=== PATIENT | male | born 2000 | race Caucasian/White ===

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

== ENCOUNTER 2022-04-10 08:05 | Emergency (ER) | payer MEDICAID, SELFPAY ==
[2022-04-10 08:08] VITALS: BP 135/81; PULSE 62; RESP 16; TEMP 36.5; O2SAT 98; BMI 26.6
--- NOTE | 2022-04-10 08:15 | W.ED.GENADLT ---
HPI - General Adult General: Chief complaint: General Medical Stated complaint: dental pain Time Seen by Provider: 04/10/22 08:11 Source: patient Mode of arrival: ambulatory History of Present Illness: 21-year-old male presents ER complaint of dental pain in the left mandibular area in the area of the second molar. He was seen 2 days ago at urgent care and started on clindamycin and encouraged to use aggressive dental hygiene and follow-up with a dentist soon as he is able. He has been taking the clindamycin he states he does not feel like it is getting better. He has not been able to see a dentist at this point. Onset (ago): day(s) Severity: moderate Quality: aching Pain Consistency: constant Relieving factors: none Exacerbating factors: none Associated symptoms: Reports decreased appetite; Deny chest pain, dyspnea, fevers/chills, headache(s), malaise or nausea Treatments prior to arrival: other (Antibiotics, [id number] analgesics) Review of Systems Const: Denies: fever(s), chills, body aches, change in appetite, fatigue or malaise ENMT: Denies: throat pain, ear or mastoid pain, nasal discharge or nasal congestion Card: Denies: chest pain, edema, dyspnea on exertion or orthopnea Resp: Denies: dyspnea, productive cough or non-productive cough GI: Denies: nausea Neuro: Denies: headache(s) [facility] ED PFSH: Medical History (Updated 04/10/22 @ 08:22 by Pietro Blackmon DO) Eczema Surgical History History of appendectomy History of eye surgery Social History Smoking and tobacco status: current every day smoker Alcohol intake: never Current gender identity: Male Physical Exam Const: COMMON NORMALS: no acute distress GENERAL APPEARANCE: cooperative and comfortable ORIENTATION/CONSCIOUSNESS: Yes awake, Yes oriented to person, Yes oriented to place and Yes oriented to time HENMT: COMMON NORMALS: normocephalic and atraumatic HEAD & SCALP: normocephalic and atraumatic OTHER: Inflammation of the gum on the left second molar of the mandible. No pointing no drainage no fluctuant palpable areas. No submandibular swelling or tenderness. Neck/C-Spine: COMMON NORMALS: full ROM, no lymphadenopathy, supple and no JVD Lymph: LYMPHATIC: no lymphadenopathy noted and no lymphedema noted Resp: COMMON NORMALS: normal respiratory effort, No retractions, No use of accessory muscles and clear to auscultation bilaterally AUSCULTATION: clear to auscultation bilaterally Cardio: COMMON NORMALS: no JVD, regular rate, regular rhythm and No murmurs present (Cardio) RATE: regular rate RHYTHM: regular rhythm Neuro: SENSORIUM/ORIENTATION: Yes oriented to person, Yes oriented to place and Yes oriented to time Skin: COMMON NORMALS: no rashes or lesions noted GENERAL SKIN EXAM: no rashes or lesions noted Course Vital Signs: Vital signs: Vital Signs Temperature 97.7 F 04/10/22 08:08 Pulse Rate 62 04/10/22 08:08 Respiratory Rate 16 04/10/22 08:08 Blood Pressure 135/81 04/10/22 08:08 Pulse Oximetry 98 04/10/22 08:08 Oxygen Delivery Me thod 04/10/22 08:08 [facility] - General Adult Medical Decision Making Continue clindamycin can use diclofenac and occasional tramadol follow-up with dentist as soon as able. Medical Records I reviewed the patient's medical records. Discharge Plan Discharge Patient Disposition: Home Clinical Impression: Abscess, dental Condition: Stable Prescriptions: New diclofenac sodium 75 mg tablet,delayed release (DR/EC) 75 mg PO Q12H PRN (Reason: pain) Qty: 20 0RF tramadol 50 mg tablet 50 mg PO Q12H Qty: 5 0RF No Action clindamycin HCl 150 mg capsule 450 mg PO TID 7 Days Qty: 63 0RF Discharge Orders: Discharge ED (Routine); Ordered 04/10/22 Ordered By: Pietro Blackmon Referrals: Brea Chau DO [Primary Care Provider] - Discharge Diet: Soft Mechanical Patient Instructions: Opioid Safety, Pain Management Activity Restrictions/Additional Instructions: Follow-up with dentist as soon as you are able. Continue regular dental hygiene. 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
--- NOTE | 2022-04-10 08:16 | PC.NURSE ---
pt reports dental abscess to left lower jaw x4 days. reports was seen in urgent care and was started on clindamycin 3 days ago. report was told if no improvement in 2 days to come back and be seen. pt denies fever or contact with sick contacts. reports swelling is spreading to front of jaw as well. pt speech clear, speaking in complete sentences without difficulty. self maintained, patent airway. no abnormal airway noises. lung sounds clear bilat. discolored gums noted to left lower jaw where there is a missing tooth towards the back. pt denies recent dental work. no significant swelling or erythema visualized.
[2022-04-10 08:31] VITALS: PULSE 60; RESP 16; O2SAT 100
== END 2022-04-10 08:34 | disposition home or self-care (01) ==
PROVIDERS: Emergency Provider Family Medicine; PCP Family Medicine
DX: K04.7 Periapical abscess without sinus (principal); F17.200 Nicotine dependence, unspecified, uncomplicated
CPT/HCPCS: 99283

== ENCOUNTER 2022-04-11 12:18 | Emergency (ER) | payer MEDICAID, SELFPAY ==
[2022-04-11 12:23] VITALS: BP 136/79; PULSE 78; RESP 16; TEMP 36.9; O2SAT 97; BMI 26.6
--- NOTE | 2022-04-11 12:42 | W.ED.DENTAL ---
HPI - Dental/Oral General: Chief complaint: Dental/Oral Stated complaint: dental pain Time Seen by Provider: 04/11/22 12:40 History of Present Illness: 21-year-old male patient comes in with a dental abscess. This will be patient's third visit for the same abscess. Patient reports uncontrolled pain and discomfort. Patient appears nontoxic. Patient appears in mild to moderate pain. Associated symptoms: Denies fever(s) Review of Systems Const: Denies: fever(s) ENMT: Reports: mouth pain Card: Denies: chest pain Resp: Denies: dyspnea PFSH ED PFSH: Medical History (Updated 04/11/22 @ 13:02 by JA Perez) Eczema Surgical History History of appendectomy History of eye surgery Social History Smoking and tobacco status: current every day smoker Alcohol intake: never Current gender identity: Male Physical Exam Const: COMMON NORMALS: alert HENMT: TEETH & GINGIVA: Yes abnormal tooth and associated gingiva (Abscess left lower jaw), Yes caries and Yes poor dentition Neck/C-Spine: COMMON NORMALS: full ROM Resp: COMMON NORMALS: normal respiratory effort Cardio: COMMON NORMALS: regular rate RATE: regular rate Extremity: COMMON NORMALS: normal to inspection Neuro: SENSORIUM/ORIENTATION: Yes alert Skin: COMMON NORMALS: turgor normal GENERAL SKIN EXAM: turgor normal Procedures Abscess I/D Site: oral Side (if applicable): left Sedation/analgesia: other (Dental block) Local Anesthetic: lidocaine 1% Amount of anesthesia used (mL): 3 Technique: incised with #11 blade Amount of fluid expressed (mL): 3 Packing used?: none Nerve Block Nerve Block 1: Local Anesthetic: lidocaine 1% Amount of anesthesia used (mL): 3 Side: left Nerve Blocks: other (Inferior aveolar dental block) Course Vital Signs: Vital signs: Vital Signs Temperature 98.5 F 04/11/22 12:23 Pulse Rate 78 04/11/22 12:23 Respiratory Rate 16 04/11/22 12:23 Blood Pressure 136/79 04/11/22 12:23 Pulse Oximetry 97 04/11/22 12:23 Oxygen Delivery Me thod 04/11/22 12:23 MDM - Dental/Oral Medical Decision Making Patient comes in with dental pain. Patient has an abscess to his left lower jaw. On exam patient appears nontoxic. Patient has a dental abscess noted at the first molar. Patient has significantly poor dentition, with multiple caries. Vital signs are normal. Differential diagnosis includes but not limited to dental abscess, retropharyngeal abscess, malingering. No sign of airway obstruction or abnormality was noted. Incision and drainage was done to the abscess with good results Patient will continue with clindamycin. Patient was written for 6 tablets of hydrocodone for his pain. Discharge Plan Discharge Patient Disposition: Home Clinical Impression: Abscess, dental Condition: Stable Prescriptions: New hydrocodone-acetaminophen 5-325 mg tablet 1 tab PO Q8H PRN (Reason: pain) Qty: 6 0RF Continued clindamycin HCl 150 mg capsule 450 mg PO TID 7 Days Qty: 63 0RF No Action diclofenac sodium 75 mg tablet,delayed release (DR/EC) 75 mg PO Q12H PRN (Reason: pain) Qty: 20 0RF tramadol 50 mg tablet 50 mg PO Q12H Qty: 5 0RF Discharge Orders: Discharge ED (Routine); Ordered 04/11/22 Ordered By: Parish Kerr Referrals: Brea Chau DO [Primary Care Provider] - Discharge Diet: Usual diet Discharge Activity: Increase activity as tolerated Patient Instructions: Toothache (ED), Opioid Safety Activity Restrictions/Additional Instructions: Range male frequently with warm salt water. Continue with antibiotic. Follow-up with dentist as soon as possible. Return to emergency room for fever greater than 100.4, or new concerns. 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
[2022-04-11] MEDS: HYDROcodone-acetaminophen 7.5-325 mg Tablet 1 TAB PO (12:58)
[2022-04-11] MEDS: lidocaine 1% INJ 20 mL MDV (mL) INJECTION (13:16)
== END 2022-04-11 13:15 | disposition home or self-care (01) ==
PROVIDERS: Emergency Provider Nurse Practitioner Family; PCP Family Medicine
DX: K04.7 Periapical abscess without sinus (principal); F17.200 Nicotine dependence, unspecified, uncomplicated
CPT/HCPCS: 41800; 99283

== ENCOUNTER 2022-06-12 22:14 | Emergency (ER) | payer MEDICAID, SELFPAY ==
[2022-06-12 22:25] VITALS: BP 144/94; PULSE 69; RESP 16; TEMP 36.6; O2SAT 99; BMI 23.5
--- NOTE | 2022-06-12 22:32 | USR_ITS ---
PROCEDURE INFORMATION: Exam: US Scrotum and US Duplex Artery and Vein, Scrotum, Complete Exam date and time: 06/12/2022 10:53 PM Age: 21 years old Clinical indication: Scrotum pain; Additional info: Left testicle pain TECHNIQUE: Imaging protocol: Real-time ultrasound of the scrotum. Real-time duplex ultrasound scan of the arterial and venous flow of the scrotum with B-mode, color Doppler flow and spectral waveform analysis. Complete exam. Duplex exam was performed to evaluate for torsion and other vascular conditions. COMPARISON: No relevant prior studies available. FINDINGS: Right: The right testicle measures 45 x 27 x 31 mm, estimated volume 18.9 cc. No visible intratesticular mass. Duplex Doppler evaluation, with color flow and spectral waveform analysis, demonstrates intratesticular arterial and venous blood flow. The right epididymis is normal in size and appearance. There is no significant right scrotal fluid. Left: The left testicle measures 44 x 22 x 33 mm, estimated volume 16.9 cc. No visible intratesticular mass. Duplex Doppler evaluation, with color flow and spectral waveform analysis, demonstrates intratesticular arterial and venous blood flow. The left epididymis is normal in size and appearance. There is no significant left scrotal fluid. US/US scrotum [id number] IMPRESSION: 1. No evidence for torsion by Doppler ultrasound. 2. No findings to suggest epididymitis. 3. Other details discussed above.
--- NOTE | 2022-06-12 22:32 | ED_ITS ---
HPI - Male Genitourinary General: Chief complaint: Urogenital-Male Stated complaint: Groin, Discomfort Time Seen by Provider: 06/12/22 22:23 Source: patient Mode of arrival: ambulatory Limitations: no limitations History of Present Illness: 21-year-old male states that he has been having left testicle pain over the last day states that its mild nature rates it a 2 out of 10 he denies any dysuria denies any penile discharge he states is worse with palpation improved with rest. Denies any vomiting denies any abdominal or flank pain. Associated symptoms: Deny nausea or vomiting Review of Systems Const: Denies: fever(s), chills, body aches or change in appetite Eyes: Denies: blurry vision or eye discomfort ENMT: Denies: throat pain or dental pain Card: Denies: chest pain Resp: Denies: dyspnea GI: Denies: abdominal pain, nausea, vomiting or diarrhea : Reports: genital pain Musc: Denies: neck pain or back pain Skin/Breast: Denies: rash Neuro: Denies: headache(s) Psych: Denies: depression Jj/Lymph: Denies: easy bruising All/Imm: Denies: urticaria PFSH ED PFSH: Medical History (Updated 06/12/22 @ 23:37 by Brian Cody MD) Eczema Surgical History History of appendectomy History of eye surgery Social History Smoking and tobacco status: current every day smoker Alcohol intake: never Current gender identity: Male Physical Exam Const: COMMON NORMALS: no acute distress, patient oriented x3 and healthy appearing HENMT: COMMON NORMALS: normocephalic and atraumatic HEAD & SCALP: normocephalic and atraumatic Eye: COMMON NORMALS: Equal, round and reactive pupils present and EOMs intact bilaterally PUPIL: Yes Equal, round and reactive pupils present Neck/C-Spine: COMMON NORMALS: full ROM and supple Chest: COMMONS NORMALS: normal inspection of the chest and normal palpation of entire chest wall Resp: COMMON NORMALS: normal respiratory effort, No retractions, No use of accessory muscles and clear to auscultation bilaterally AUSCULTATION: clear to auscultation bilaterally Cardio: COMMON NORMALS: regular rate, regular rhythm and No murmurs present (Cardio) RATE: regular rate RHYTHM: regular rhythm GI: COMMON NORMALS: Normal to inspection, nondistended, normoactive bowel sounds present, Soft to palpation, non-tender and no masses PALPATION: Yes Soft to palpation : OTHER: Slight tenderness to left testicle no obvious deformity Extremity: COMMON NORMALS: normal to inspection and full ROM Neuro: COMMON NORMALS: patient oriented x3, moves all extremities and no focal motor deficits Psych: COMMON NORMALS: mental status grossly normal, Normal thought process present and cooperative THOUGHT PROCESS: Normal thought process present Skin: COMMON NORMALS: no rashes or lesions noted and no wounds GENERAL SKIN EXAM: no rashes or lesions noted Course Vital Signs: Vital signs: Vital Signs Temperature 97.9 F 06/12/22 22:25 Pulse Rate 69 06/12/22 22:25 Respiratory Rate 16 06/12/22 22:25 Blood Pressure 144/94 06/12/22 22:25 Pulse Oximetry 99 06/12/22 22:25 Oxygen Delivery Me thod 06/12/22 22:25 MDM - Male Medical Decision Making Patient presents here with testicle pain his ultrasound here is negative he is stable for discharge he is to follow-up PCP and return if worsening. He understands agrees to plan. Lab Data Radiology Impressions Scrotum Ultrasound 06/12/22 22:32 IMPRESSION: 1. No evidence for torsion by Doppler ultrasound. 2. No findings to suggest epididymitis. 3. Other details discussed above. Discharge Plan Discharge Patient Disposition: Home Clinical Impression: Left testicular pain Condition: Stable Prescriptions: No Action diclofenac sodium 75 mg tablet,delayed release (DR/EC) 75 mg PO Q12H PRN (Reason: pain) Qty: 20 0RF tramadol 50 mg tablet 50 mg PO Q12H Qty: 5 0RF clindamycin HCl 150 mg capsule 450 mg PO TID 7 Days Qty: 63 0RF hydrocodone-acetaminophen 5-325 mg tablet 1 tab PO Q8H PRN (Reason: pain) Qty: 6 0RF Discharge Orders: Discharge ED (Routine); Ordered 06/12/22 Ordered By: Brian Cody Referrals: Brea Chau DO [Primary Care Provider] - Discharge Diet: Advance as tolerated Discharge Activity: Resume usual activity Patient Instructions: Testicle Pain (ED) Coding Level of Care Code ED Aviation Safety Technician for Chg Fwd Exam Comprehensive
[2022-06-13] VITALS: BP 138/77; PULSE 81; RESP 18; O2SAT 99
== END 2022-06-12 23:58 | disposition home or self-care (01) ==
PROVIDERS: Emergency Provider Emergency Medicine; PCP Family Medicine
DX: N50.812 Left testicular pain (principal)
CPT/HCPCS: 76870; 99283

== ENCOUNTER 2022-07-25 18:04 | Emergency (ER) | payer MEDICAID, SELFPAY ==
[2022-07-25 18:08] VITALS: PULSE 78; RESP 16; TEMP 37.3; O2SAT 99
--- NOTE | 2022-07-25 18:41 | XRR_ITS ---
PROCEDURE INFORMATION: Exam: XR Right Knee Exam date and time: 07/25/2022 7:17 PM Age: 21 years old Clinical indication: Injury or trauma; Other: Sports related injury; Blunt trauma; Knee; Right; Additional info: Fall, knee pain, HX mcl injury TECHNIQUE: Imaging protocol: Radiologic exam of the Right knee. Views: 3 views. COMPARISON: No relevant prior studies available. FINDINGS: Bones/joints: No fracture or dislocation. No degenerative changes. Soft tissues: Probable small joint effusion. . XR/XR knee RT 3V* [id number] IMPRESSION: 1. No acute bony findings 2. Probable small joint effusion
[2022-07-25] MEDS: oxyCODONE-APAP 5-325 mg Tablet 1 TAB PO (22:05)
--- NOTE | 2022-07-27 12:19 | W.ED.EXTPRO ---
HPI - Extremity Problem General: Chief complaint: Extremity Injury, Lower Stated complaint: right knee injury Time Seen by Provider: 07/25/22 21:14 History of Present Illness: 21 year old male complaints of a knee injury, in which he fell against a stair, striking in front of his knee. He complains mainly of anterior knee pain, but some medial knee pain as well. He has some swelling. He states these are making it hard to walk. He has a hinged brace at home, that has not used it much. MD Complaint: joint swelling and joint pain Onset (ago): day(s) Pain Consistency: constant Location: right and knee Quality: aching Radiation: none Relieving factors: immobilization Exacerbating factors: range of motion, weight bearing and walking Associated symptoms: Deny arthralgias, chest pain, fever(s), rash or short of breath Context: other Review of Systems Const: Denies: fever(s) Eyes: Denies: change in vision Card: Denies: chest pain Resp: Denies: dyspnea, productive cough, non-productive cough or wheezing GI: Denies: abdominal pain, nausea, vomiting or diarrhea Skin/Breast: Denies: rash Neuro: Denies: headache(s), weakness in extremities, dizziness or confusion [facility] ED PFSH: Medical History (Updated 07/25/22 @ 21:51 by Lorenzo Singh DO) Eczema Surgical History History of appendectomy History of eye surgery Social History Smoking and tobacco status: current every day smoker Alcohol intake: never Current gender identity: Male Physical Exam Const: COMMON NORMALS: no acute distress GENERAL APPEARANCE: cooperative; not ill appearing and not frail appearing HENMT: COMMON NORMALS: normocephalic, atraumatic and Normal external nose present HEAD & SCALP: normocephalic and atraumatic FACE & SINUS: normal facial exam and face symmetric NOSE: Normal external nose present Eye: COMMON NORMALS: Equal, round and reactive pupils present and EOMs intact bilaterally PUPIL: Yes Equal, round and reactive pupils present Neck/C-Spine: GENERAL: Yes trachea midline Chest: CHEST: Yes Symmetrical chest wall rise Resp: COMMON NORMALS: normal respiratory effort, No retractions, No use of accessory muscles and clear to auscultation bilaterally AUSCULTATION: clear to auscultation bilaterally Cardio: COMMON NORMALS: regular rate and regular rhythm RATE: regular rate RHYTHM: regular rhythm GI: COMMON NORMALS: Normal to inspection, nondistended, normoactive bowel sounds present Extremity: COMMON NORMALS: no pedal edema NARRATIVE EXTREMITY EXAM: Examination of the right knee reveals an effusion. There is anterior and medial joint line tenderness. There is no deformity. Ligamentous testing is guarded. Neuro: DORIS COMA SCALE: document GCS findings [place] coma scale eye opening: Spontaneous Doris coma scale verbal response: Orientated Doris coma scale motor response: Obey commands [place] coma scale total score: 15 SENSORY EXAM: Yes extremities (intact) Psych: COMMON NORMALS: speech normal SPEECH: Yes normal speech Skin: COMMON NORMALS: no rashes or lesions noted GENERAL SKIN EXAM: no rashes or lesions noted Course Vital Signs: Vital signs: Vital Signs Temperature 99.1 F 07/25/22 18:08 Pulse Rate 78 07/25/22 18:08 Respiratory Rate 16 07/25/22 18:08 Pulse Oximetry 99 07/25/22 18:08 MDM - Extremity (Nontraumatic) Medical Decision Making X-ray is negative for fracture, but does show a knee effusion. We will make him a follow up appointment with orthopedics for continued evaluation. He?ll be placed on a Medrol jim for the swelling in the meantime. Knee immobilizer for no more than 5 days then back to his hinged brace. Return for new symptoms. Lab Data Radiology Impressions Knee X-Ray 07/25/22 18:41 IMPRESSION: 1. No acute bony findings 2. Probable small joint effusion Discharge Plan Discharge Patient Disposition: Home Clinical Impression: Effusion of knee joint right, Contusion of knee, right Condition: Stable Prescriptions: New Medrol (Jim) 4 mg tablets,dose pack See Rx Instructions .ROUTE .COMPLEX Qty: 21 0RF Rx Instructions: orally per package directions No Action diclofenac sodium 75 mg tablet,delayed release (DR/EC) 75 mg PO Q12H PRN (Reason: pain) Qty: 20 0RF tramadol 50 mg tablet 50 mg PO Q12H Qty: 5 0RF clindamycin HCl 150 mg capsule 450 mg PO TID 7 Days Qty: 63 0RF hydrocodone-acetaminophen 5-325 mg tablet 1 tab PO Q8H PRN (Reason: pain) Qty: 6 0RF Discharge Orders: Discharge ED (Routine); Ordered 07/25/22 Ordered By: Lorenzo Singh Referrals: Brea Chau DO [Primary Care Provider] - Glynn Alvarez DO [Physician] - 4-7 days Patient Instructions: Swollen Knee Joint (ED) Activity Restrictions/Additional Instructions: Case management will make an appointment for you to follow-up with orthopedics. You should get a call from them on Tuesday or Tuesday. Return for fever, worsening pain or swelling despite treatment. Wear your knee immobilizer for the next 5 days only, then moved back to your hinged knee brace. Medication as directed. Coding Level of Care Code ED Lingo Cleaner for Coty Reilly
== END 2022-07-25 22:05 | disposition home or self-care (01) ==
PROVIDERS: Emergency Provider Emergency Medicine; PCP Family Medicine
DX: M25.461 Effusion, right knee (principal); S80.01XA Contusion of right knee, initial encounter; F17.210 Nicotine dependence, cigarettes, uncomplicated; W19.XXXA Unspecified fall, initial encounter
CPT/HCPCS: 29530; 73562; 99283; E0114

== ENCOUNTER 2022-08-18 05:18 | Emergency (ER) | payer MEDICAID, SELFPAY ==
[2022-08-18 05:22] VITALS: BP 141/90; PULSE 77; RESP 16; TEMP 36.4; O2SAT 100; BMI 23.5
--- NOTE | 2022-08-18 05:26 | ED_ITS ---
HPI - Dental/Oral General: Chief complaint: Dental/Oral Stated complaint: tooth abcess Time Seen by Provider: 08/18/22 05:19 Source: patient Mode of arrival: ambulatory Limitations: no limitations History of Present Illness: 21-year-old male states has been having left lower dental pain over the last 8 to 10 hours states he has had dental infections in the past he does have poor dentition he states he has pain he rates a 3 out of 10 denies any trismus denies any fever denies any worsening proving factors. Associated symptoms: Denies fever(s) Review of Systems Const: Denies: fever(s), chills, body aches or change in appetite Eyes: Denies: blurry vision or eye discomfort ENMT: Reports: mouth pain Card: Denies: chest pain Resp: Denies: dyspnea GI: Denies: abdominal pain, nausea, vomiting or diarrhea : Denies: dysuria Musc: Denies: neck pain or back pain Skin/Breast: Denies: rash Neuro: Denies: headache(s) Psych: Denies: depression Jj/Lymph: Denies: easy bruising All/Imm: Denies: urticaria PFS ED PFSH: Medical History (Updated 08/18/22 @ 05:28 by Brian Cody MD) Eczema Surgical History History of appendectomy History of eye surgery Social History Smoking and tobacco status: current every day smoker Alcohol intake: never Current gender identity: Male Physical Exam Const: COMMON NORMALS: no acute distress and patient oriented x3 HENMT: COMMON NORMALS: normocephalic and atraumatic HEAD & SCALP: normocephalic and atraumatic OTHER: Poor dentition some tenderness and erythema to left lower molar no abscess no trismus Eye: COMMON NORMALS: conjunctivae normal CONJUNCTIVA: Yes conjunctivae normal Neck/C-Spine: COMMON NORMALS: full ROM Chest: COMMONS NORMALS: normal inspection of the chest Resp: COMMON NORMALS: normal respiratory effort Cardio: COMMON NORMALS: regular rate RATE: regular rate GI: INSPECTION: Yes normal to inspection Extremity: COMMON NORMALS: normal to inspection Neuro: COMMON NORMALS: patient oriented x3 Psych: COMMON NORMALS: mental status grossly normal Skin: COMMON NORMALS: no rashes or lesions noted GENERAL SKIN EXAM: no rashes or lesions noted Course Vital Signs: Vital signs: Vital Signs Temperature 97.6 F 08/18/22 05:22 Pulse Rate 77 08/18/22 05:22 Respiratory Rate 16 08/18/22 05:22 Blood Pressure 141/90 08/18/22 05:22 Pulse Oximetry 100 08/18/22 05:22 Oxygen Delivery Me thod 08/18/22 05:22 MDM - Dental/Oral Medical Decision Making Patient presents with dental pain as of erythema no abscess at this time no trismus we will start him on antibiotics he is to follow-up with a dentist. Discharge Plan Discharge Patient Disposition: Home Clinical Impression: Pain, dental Condition: Stable Prescriptions: New cephalexin 500 mg capsule 500 mg PO TID 7 Days Qty: 21 0RF naproxen [Naprosyn] 500 mg tablet 500 mg PO BID PRN (Reason: pain) Qty: 20 0RF No Action diclofenac sodium 75 mg tablet,delayed release (DR/EC) 75 mg PO Q12H PRN (Reason: pain) Qty: 20 0RF tramadol 50 mg tablet 50 mg PO Q12H Qty: 5 0RF clindamycin HCl 150 mg capsule 450 mg PO TID 7 Days Qty: 63 0RF hydrocodone-acetaminophen 5-325 mg tablet 1 tab PO Q8H PRN (Reason: pain) Qty: 6 0RF Medrol (Jim) 4 mg tablets,dose pack See Rx Instructions .ROUTE .COMPLEX Qty: 21 0RF Rx Instructions: orally per package directions Discharge Orders: Discharge ED (Routine); Ordered 08/18/22 Ordered By: Brian Cody Referrals: Brea Chau DO [Primary Care Provider] - Discharge Diet: Advance as tolerated Discharge Activity: Resume usual activity Patient Instructions: Toothache (ED) Coding Level of Care Code ED Skiff Operator for Coty Reilly
[2022-08-18] MEDS: HYDROcodone-acetaminophen 5-325 mg Tablet 1 TAB PO (05:31)
[2022-08-18] MEDS: cephALEXin 500 mg Capsule PO (05:31)
[2022-08-18 05:37] VITALS: RESP 16
== END 2022-08-18 05:38 | disposition home or self-care (01) ==
PROVIDERS: Emergency Provider Emergency Medicine; PCP Family Medicine
DX: K08.89 Other specified disorders of teeth and supporting structures (principal); F17.210 Nicotine dependence, cigarettes, uncomplicated
CPT/HCPCS: 99283

== ENCOUNTER → 2022-08-20 10:36 | Outpatient (BNVA) | payer MEDICAID, SELFPAY | PROVIDERS: PCP Family Medicine; Visit Provider Student in an Organized Health Care Education/Training Program | DX: S83.241A Other tear of medial meniscus, current injury, right knee, initial encounter (principal); W10.8XXA Fall (on) (from) other stairs and steps, initial encounter | CPT/HCPCS: 73560; 73565 ==

== ENCOUNTER 2022-09-03 23:16 | Emergency (ER) | payer MEDICAID, SELFPAY ==
[2022-09-03 23:21] VITALS: BP 149/90; PULSE 82; RESP 18; TEMP 36.8; O2SAT 98; BMI 23.5
--- NOTE | 2022-09-03 23:26 | ECG_ITS ---
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 Measurements Intervals [place] Rate: 72 P: 72 DC: 136 QRS: 74 QRSD: 94 T: 62 QT: 346 QTc: 381 Interpretive Statements SINUS RHYTHM POSSIBLE RIGHT VENTRICULAR CONDUCTION DELAY [RSR (QR) IN V1/V2] No previous ECG available for comparison Electronically Signed On 09-04-2022 19:30:41 HEDGE FUND PRINCIPAL by Prieto Monk M.D. [email or web address]
--- NOTE | 2022-09-03 23:33 | W.ED.CHESTPA ---
HPI - Chest Pain General: Chief Complaint: Chest Pain Stated Complaint: Chest Pain Time Seen by Provider: 09/03/22 23:32 History of Present Illness: 22-year-old male patient comes in today with complaints of chest wall pain. Patient reports pain radiates across his chest mainly with movement. Patient appears nontoxic. Patient appears in no acute distress. Patient has a history of inherited dental disease, alcohol use disorder, tobacco chewing, major depression, anxiety disorder. Patient recently been on antibiotics for a dental infection. Associated symptoms: Deny dyspnea, fever(s), nausea or vomiting Review of Systems Const: Denies: fever(s) Card: Reports: chest pain Resp: Denies: dyspnea GI: Denies: nausea or vomiting Musc: Denies: neck pain or back pain Neuro: Denies: headache(s) PFS ED PFSH: Medical History (Updated 09/04/22 @ 01:19 by JA Perez) Eczema Surgical History History of appendectomy History of eye surgery Social History Smoking and tobacco status: current every day smoker Alcohol intake: never Current gender identity: Male Physical Exam Const: COMMON NORMALS: alert HENMT: COMMON NORMALS: normocephalic and Normal external nose present HEAD & SCALP: normocephalic NOSE: Normal external nose present Neck/C-Spine: COMMON NORMALS: full ROM Lymph: LYMPHATIC: no lymphadenopathy noted Chest: COMMONS NORMALS: normal palpation of entire chest wall Resp: COMMON NORMALS: normal respiratory effort and clear to auscultation bilaterally AUSCULTATION: clear to auscultation bilaterally Cardio: COMMON NORMALS: regular rate and regular rhythm RATE: regular rate RHYTHM: regular rhythm GI: COMMON NORMALS: Soft to palpation and non-tender PALPATION: Yes Soft to palpation : COMMON NORMALS: Yes no CVA tenderness BLADDER/KIDNEY EXAM: Yes no CVA tenderness Back/Pelvis: COMMON NORMALS: no CVA tenderness and thoracic and lumbar spine normal to inspection Extremity: COMMON NORMALS: full ROM Neuro: SENSORIUM/ORIENTATION: Yes alert Skin: COMMON NORMALS: turgor normal GENERAL SKIN EXAM: turgor normal Course Vital Signs: Vital signs: Vital Signs Temperature 98.2 F 09/03/22 23:21 Pulse Rate 79 09/03/22 23:40 Respiratory Rate 16 09/03/22 23:40 Blood Pressure 156/90 09/03/22 23:40 Pulse Oximetry 99 09/03/22 23:40 MDM - Chest Pain Medical Decision Making 22-year-old male patient comes in today for complaints of chest pain with movement. On exam patient appears nontoxic. Abdomen soft nontender. Skin is warm and dry. No chest wall reproducible pain is noted. Differential diagnosis includes but not limited to his GERD, ACS, PE, malingering, depression. Laboratory values were unremarkable. EKG was unremarkable. No signs of ACS was noted. D-dimer was negative. Patient was given a GI cocktail with good results. Suspect patient might have some GERD/esophagitis/gastritis. Will start on Protonix daily for the next 14 days. Patient reported understanding of care plan need for follow-up or return to the ER. Lab Data 09/03/22 23:43 09/03/22 23:43 Laboratory Results WBC 8.1 10^3/uL (4.5-13.0) 09/03/22 23:43 RBC 5.20 10^6/uL (4.1-5.3) 09/03/22 23:43 Hgb 14.4 g/dL (11.7-16.6) 09/03/22 23:43 Hct 44.2 % (42.0-52.0) 09/03/22 23:43 MCV 85.0 fl (80-94) 09/03/22 23:43 MCH 27.7 pg (28.0-34.0) L 09/03/22 23:43 MCHC 32.6 g/dL (30.0-36.0) 09/03/22 23:43 RDW 11.9 % (12.1-15.1) L 09/03/22 23:43 Plt Count 273 10^3/cmm (130-400) 09/03/22 23:43 MPV 10.2 fL (7.4-10.4) 09/03/22 23:43 Neut % (Auto) 52.5 % 09/03/22 23:43 Lymph % (Auto) 38.1 % 09/03/22 23:43 Grand % (Auto) 6.2 % 09/03/22 23:43 Eos % (Auto) 2.5 % 09/03/22 23:43 Baso % (Auto) 0.6 % 09/03/22 23:43 Neut # (Auto) 4.23 10^3/uL (1.8-8.0) 09/03/22 23:43 Lymph # (Auto) 3.1 10^3/uL (1.5-6.5) 09/03/22 23:43 Grand # (Auto) 0.5 10^3/uL (0.2-0.9) 09/03/22 23:43 Eos # (Auto) 0.2 10^3/uL (0.0-0.8) 09/03/22 23:43 Baso # (Auto) 0.1 10^3/uL (0.0-0.1) 09/03/22 23:43 Nucleated RBC % (auto) 0 % 09/03/22 23:43 Nucleated RBCs # 0.0 /100WBC 09/03/22 23:43 D-Dimer <= 0.27 ug/mIFEU (0-0.59) 09/03/22 23:43 Sodium 138 mmol/L (136-145) 09/03/22 23:43 Potassium 3.7 mmol/L (3.5-5.1) 09/03/22 23:43 Chloride 101 mmol/L (98-107) 09/03/22 23:43 Carbon Dioxide 26 mmol/L (22-29) 09/03/22 23:43 Anion Gap 14.7 (5-19) 09/03/22 23:43 BUN 13 mg/dL (6-20) 09/03/22 23:43 Creatinine 0.6 mg/dL (0.7-1.2) L 09/03/22 23:43 GFR Calculation 171.8 mL/min (90-130) H 09/03/22 23:43 Glucose 114 mg/dL (65-115) 09/03/22 23:43 Calculated Osmolality 287 mOsm/kg (285-295) 09/03/22 23:43 Calcium 9.8 mg/dL (8.5-10.5) 09/03/22 23:43 Total Bilirubin 0.4 mg/dL (0.15-1.2) 09/03/22 23:43 AST 13 U/L (0-40) 09/03/22 23:43 ALT 7 U/L (0-41) 09/03/22 23:43 Alkaline Phosphatase 67 U/L (40-130) 09/03/22 23:43 Troponin T Baseline 6 ng/L (0-15) 09/03/22 23:43 NT-Pro-B Natriuret Pep 36 pg/mL (0-125) 09/03/22 23:43 Total Protein 7.3 g/dL (6.6-8.7) 09/03/22 23:43 Albumin 4.9 g/dL (3.5-5.2) 09/03/22 23:43 Globulin 2.4 g/dL (1.3-4.6) 09/03/22 23:43 Lipase 32 U/L (13-60) 09/03/22 23:43 Discharge Plan Discharge Patient Disposition: Home Clinical Impression: GERD (gastroesophageal reflux disease) Qualifiers: Esophagitis presence: esophagitis presence not specified Qualified Code(s): K21.9 - Gastro-esophageal reflux disease without esophagitis Condition: Stable Prescriptions: New pantoprazole 20 mg tablet,delayed release (DR/EC) 20 mg PO DAILY Qty: 14 0RF Rx Instructions: take 30 minutes prior to first meal No Action Naprosyn 500 mg tablet 500 mg PO BID PRN (Reason: pain) Qty: 20 0RF diclofenac sodium 75 mg tablet,delayed release (DR/EC) 75 mg PO Q12H PRN (Reason: pain) Qty: 20 0RF hydrocodone-acetaminophen 5-325 mg tablet 1 tab PO Q8H PRN (Reason: pain) Qty: 6 0RF Discharge Orders: Discharge ED (Routine); Ordered 09/04/22 Ordered By: Parish Kerr Referrals: Brea Chau DO [Primary Care Provider] - Discharge Diet: Usual diet Discharge Activity: Increase activity as tolerated Patient Instructions: GERD (Gastroesophageal Reflux Disease) (ED) Activity Restrictions/Additional Instructions: Take pantoprazole 20 mg 1 tablet 30 minutes prior to the first meal of each day. Use that for the next 2 weeks. Follow-up with primary care in 2 weeks for recheck. Return to emergency department for new concerns. Coding Level of Care Code ED Cotton Cleaner for Coty Reilly
[2022-09-03 23:40] VITALS: BP 156/90; PULSE 79; RESP 16; O2SAT 99
[2022-09-04 00:05] LABS: Basophils # 0.1 10^3/uL (0.0-0.1); Basophils % 0.6 %; Eosinophils # 0.2 10^3/uL (0.0-0.8); Eosinophils % 2.5 %; Hematocrit 44.2 % (42.0-52.0); Hemoglobin 14.4 g/dL (11.7-16.6); Lymphocytes # 3.1 10^3/uL (1.5-6.5); Lymphocytes % 38.1 %; Mean Corpuscular HGB Conc 32.6 g/dL (30.0-36.0); Mean Corpuscular Hemoglobin 27.7 pg (28.0-34.0); Mean Platelet Volume 10.2 fL (7.4-10.4); Monocytes # 0.5 10^3/uL (0.2-0.9); Monocytes % 6.2 %; Neutrophils # 4.23 10^3/uL (1.8-8.0); Neutrophils % 52.5 %; Nucleated Red Blood Cells % 0 %; Platelet Count 273 10^3/cmm (130-400); Red Cell Distribution Width 11.9 % (12.1-15.1); White Blood Count 8.1 10^3/uL (4.5-13.0)
[2022-09-04 00:09] LABS: D Dimer <= 0.27 ug/mIFEU (0-0.59)
[2022-09-04 00:18] LABS: Troponin(5th) Baseline 6 ng/L (0-15)
[2022-09-04 00:25] LABS: Alanine Aminotransferase 7 U/L (0-41); Albumin Level 4.9 g/dL (3.5-5.2); Alkaline Phosphatase 67 U/L (40-130); Anion Gap 14.7 (5-19); Aspartate Amino Transferase 13 U/L (0-40); Blood Urea Nitrogen 13 mg/dL (6-20); Calcium 9.8 mg/dL (8.5-10.5); Carbon Dioxide 26 mmol/L (22-29); Chloride 101 mmol/L (98-107); Globulin 2.4 g/dL (1.3-4.6); Glomerular Filtration Rate 171.8 mL/min (90-130); Glucose 114 mg/dL (65-115); Lipase 32 U/L (13-60); NT Pro B Type Natriuretic Pept 36 pg/mL (0-125); Osmolality Calculated 287 mOsm/kg (285-295); Potassium 3.7 mmol/L (3.5-5.1); Sodium 138 mmol/L (136-145); Total Bilirubin 0.4 mg/dL (0.15-1.2); Total Protein 7.3 g/dL (6.6-8.7)
[2022-09-04] MEDS: lidocaine 2% viscous 15 ML, aluminum-mag hydrox-simethicon 30 ML, sucralfate oral liq 1 GM PO (01:13)
[2022-09-04 01:31] VITALS: BP 156/90; PULSE 86; RESP 18; O2SAT 98
== END 2022-09-04 01:33 | disposition home or self-care (01) ==
PROVIDERS: Emergency Provider Nurse Practitioner Family; PCP Family Medicine
DX: K21.9 Gastro-esophageal reflux disease without esophagitis (principal); F17.210 Nicotine dependence, cigarettes, uncomplicated
CPT/HCPCS: 80053; 83690; 83880; 84484; 85025; 85378; 93005; 99284

== ENCOUNTER 2022-12-03 11:18 | Emergency (ER) | payer MEDICAID, SELFPAY ==
[2022-12-03 11:30] VITALS: BP 106/67; PULSE 63; RESP 14; TEMP 36.4; O2SAT 99; BMI 22.8
--- NOTE | 2022-12-03 11:37 | XR_ITS ---
WS: [id number] Left ankle, 3 views, 12/03/2022 Clinical Data: pain, swelling, sports injury Comparison: Left ankle, 05/08/2021. Findings: No fractures or dislocations are seen. The ankle mortise is normal. The talus and calcaneus are unrem arkable. No soft tissue swelling over the medial or lateral malleolus is seen. XR/XR ankle LT min 3V* [id number] Impression: Negative left ankle.
--- NOTE | 2022-12-03 13:18 | ED_ITS ---
HPI - Extremity Problem General: Chief complaint: Extremity Injury, Lower Stated complaint: Left Leg injury Time Seen by Provider: 12/03/22 13:15 Source: patient Mode of arrival: ambulatory Limitations: no limitations History of Present Illness: Patient is a 22-year-old male who presents to ED today for evaluation of left ankle pain. He states the pain began after running while playing softball. He denies any known injury or trauma to the ankle. He still is able to bear weight. He has not noticed any significant swelling. No redness/warmth. Has no other injuries or complaints at this time. MD Complaint: joint pain Onset (ago): day(s) (Yesterday) Pain Consistency: constant Location: left and lower extremity Radiation: none Relieving factors: immobilization Exacerbating factors: range of motion, weight bearing and walking Associated symptoms: Reports no associated symptoms; Deny chest pain, fever(s) or rash Review of Systems Const: Denies: fever(s), chills, body aches, fatigue or malaise Card: Denies: chest pain Resp: Denies: dyspnea Musc: Reports: joint pain (Left ankle); Denies: neck pain, back pain, extremity pain, extremity swelling, joint swelling, joint redness, joint warmth, joint stiffness or limited range of motion Skin/Breast: Denies: rash Neuro: Denies: numbness in extremities, weakness in extremities, sensory maldonado ges or difficulty walking [facility] ED PFSH: Medical History Eczema Surgical History History of appendectomy History of eye surgery Social History Smoking and tobacco status: current every day smoker Alcohol intake: never Substance/Drug Use: never Current gender identity: Male Physical Exam Const: COMMON NORMALS: no acute distress, average body habitus, patient oriented x3, no limitations, healthy appearing, alert and well nourished Extremity: COMMON NORMALS: normal to inspection, full ROM, capillary refill normal, no joint enlargement, no clubbing, cyanosis or edema, no calf tenderness and no pedal edema GENERAL: Yes normal exam except as noted LEFT LOWER EXTREMITY: Yes ankle joint (full ROM) Left ankle: Yes neurovascular exam (normal) and Yes foot & digits (see diagram for TTP region) Left foot and dig its: Yes ROM (normal) and Yes neurovascular exam (normal ) Feet w/LR Ind Top: 1. mild TTP; no swelling appreciated Neuro: COMMON NORMALS: patient oriented x3, moves all extremities, no focal motor deficits, no sensory deficits noted and gait normal SENSORIUM/ORIENTATION: Yes alert Course Vital Signs: Vital signs: Vital Signs Temperature 97.5 F L 12/03/22 11:30 Pulse Rate 63 12/03/22 11:30 Respiratory Rate 14 12/03/22 11:30 Blood Pressure 106/67 12/03/22 11:30 Pulse Oximetry 99 12/03/22 11:30 MDM - Extremity (Nontraumatic) Medical Decision Making XR negative. Patient is bearing weight without assistance here. He does state he has crutches at home he can use if needed. Will Aman wrap foot/ankle. RICE therapy discussed. Follow-up with primary care in 1 to 2 weeks if symptoms do not seem to be improving. Lab Data Radiology Impressions Ankle X-Ray 12/03/22 11:37 Impression: Negative left ankle. Discharge Plan Discharge Patient Disposition: Home Clinical Impression: Left ankle pain Qualifiers: Chronicity: acute Qualified Code(s): M25.572 - Pain in left ankle and joints of left foot Condition: Stable Prescriptions: No Action Naprosyn 500 mg tablet 500 mg PO BID PRN (Reason: pain) Qty: 20 0RF diclofenac sodium 75 mg tablet,delayed release (DR/EC) 75 mg PO Q12H PRN (Reason: pain) Qty: 20 0RF hydrocodone-acetaminophen 5-325 mg tablet 1 tab PO Q8H PRN (Reason: pain) Qty: 6 0RF pantoprazole 20 mg tablet,delayed release (DR/EC) 20 mg PO DAILY Qty: 14 0RF Rx Instructions: take 30 minutes prior to first meal Discharge Orders: Discharge ED (Routine); Ordered 12/03/22 Ordered By: Arielle Fulton Referrals: Brea Chau DO [Primary Care Provider] - Patient Instructions: RICE Therapy Activity Restrictions/Additional Instructions: As we discussed weightbearing as tolerated. You may ice and elevate the extremity. Wear Aman wrap as needed. Follow-up with primary care in 1 to 2 w eeks if symptoms do not seem to be improving. Coding Level of Care Code ED Machine Setter And Repairer for Coty Reilly
== END 2022-12-03 13:46 | disposition home or self-care (01) ==
PROVIDERS: Emergency Provider Physician Assistant; PCP Family Medicine
DX: M25.572 Pain in left ankle and joints of left foot (principal); F17.210 Nicotine dependence, cigarettes, uncomplicated
CPT/HCPCS: 73610; 99283

== ENCOUNTER 2023-03-30 20:40 | Emergency (ER) | payer SELFPAY ==
[2023-03-30 20:57] VITALS: BP 143/84; PULSE 84; RESP 18; TEMP 36.7; O2SAT 98; BMI 23.6
--- NOTE | 2023-03-30 21:05 | ED_ITS ---
HPI - Extremity Problem General: Chief complaint: Extremity Injury, Upper Stated complaint: arm pain Time Seen by Provider: 03/30/23 21:00 History of Present Illness: 22-year-old male patient comes in today with injury to the left elbow forearm region. Patient had struck his elbow against the cabinet at his house. Patient came in for evaluation due to some activities that he is going to be doing tomorrow. Patient appears nontoxic. Patient appears in mild to no pain. Review of Systems Musc: Reports: joint pain (Left elbow) Skin/Breast: Reports: new lesions (Abrasion elbow) [facility] ED PFS: Medical History (Updated 03/30/23 @ 21:14 by JA Perez) Eczema Surgical History History of appendectomy History of eye surgery Social History Smoking and tobacco status: current every day smoker Alcohol intake: never Substance/Drug Use: never Current gender identity: Male Physical Exam Const: COMMON NORMALS: alert HENMT: COMMON NORMALS: normocephalic HEAD & SCALP: normocephalic Neck/C-Spine: COMMON NORMALS: full ROM Resp: COMMON NORMALS: normal respiratory effort and clear to auscultation bilaterally AUSCULTATION: clear to auscultation bilaterally Cardio: COMMON NORMALS: regular rate and regular rhythm RATE: regular rate RHYTHM: regular rhythm Back/Pelvis: COMMON NORMALS: thoracic and lumbar spine normal to inspection Extremity: LEFT UPPER EXTREMITY: Yes lower arm (Proximal forearm superficial abrasion, normal range of motion) Left lower arm: Yes inspection, Yes palpation and Yes neurovascular exam Neuro: SENSORIUM/ORIENTATION: Yes alert Skin: TRAUMA: abrasion (Left elbow/proximal forearm) Course Vital Signs: Vital signs: Vital Signs Temperature 98.1 F 03/30/23 20:57 Pulse Rate 84 03/30/23 20:57 Respiratory Rate 18 03/30/23 20:57 Blood Pressure 143/84 03/30/23 20:57 Pulse Oximetry 98 03/30/23 20:57 Oxygen Delivery Me thod Room Air 03/30/23 20:57 MDM - Extremity (Nontraumatic) Medical Decision Making PulsePatient comes in for evaluation of injury to the left forearm elbow region. On exam patient has a superficial abrasion. Patient moves extremities well. Sensation is intact. Differential diagnosis includes contusion, abrasion, fracture. Range of motion of the elbow is normal. No crepitus or signs of fracture is noted. Patient does have a superficial abrasion. Wound was cleaned and covered with a dry dressing. Patient tolerated well. Instructions for wound care to patient with recommendations for follow-up or return to the ER. Discharge Plan Discharge Patient Disposition: Home Clinical Impression: Abrasion of elbow Qualifiers: Encounter type: initial encounter Laterality: left Qualified Code(s): S50.312A - Abrasion of left elbow, initial encounter Condition: Stable Prescriptions: No Action Naprosyn 500 mg tablet 500 mg PO BID PRN (Reason: pain) Qty: 20 0RF diclofenac sodium 75 mg tablet,delayed release (DR/EC) 75 mg PO Q12H PRN (Reason: pain) Qty: 20 0RF hydrocodone-acetaminophen 5-325 mg tablet 1 tab PO Q8H PRN (Reason: pain) Qty: 6 0RF pantoprazole 20 mg tablet,delayed release (DR/EC) 20 mg PO DAILY Qty: 14 0RF Rx Instructions: take 30 minutes prior to first meal Discharge Orders: Discharge ED (Routine); Ordered 03/30/23 Ordered By: Parish Kerr Referrals: Brea Chau DO [Primary Care Provider] - Discharge Diet: Usual diet Discharge Activity: Increase activity as tolerated Patient Instructions: Abrasion in Children (ED) Activity Restrictions/Additional Instructions: Clean wound twice daily with mild soap and water. Apply some antibiotic ointment to the wound until healed. Activity as tolerated. Return to ED for new concerns. Coding Level of Care Code ED Early Childhood Education Coordinator for Coty Reilly
[2023-03-30] MEDS: bacitracin ointment Pkt 1 EACH TOPICAL (21:19)
[2023-03-30 21:22] VITALS: BP 134/84; PULSE 72; RESP 16; O2SAT 97
== END 2023-03-30 21:24 | disposition home or self-care (01) ==
PROVIDERS: Emergency Provider Nurse Practitioner Family; PCP Family Medicine
DX: S50.312A Abrasion of left elbow, initial encounter (principal); F17.210 Nicotine dependence, cigarettes, uncomplicated; W22.8XXA Striking against or struck by other objects, initial encounter
CPT/HCPCS: 99283

== ENCOUNTER → 2024-03-07 08:33 | Outpatient (BNVA) | payer BC, SELFPAY | PROVIDERS: PCP Family Medicine; Visit Provider Specialist | DX: M25.562 Pain in left knee (principal) | CPT/HCPCS: 73560; 73565 ==

== ENCOUNTER 2024-04-03 13:00 | Outpatient (CLI) | payer MEDICAID, SELFPAY ==
--- NOTE | 2024-04-03 13:00 | MR_ITS ---
WS: [id number] MRI LEFT KNEE NONCONTRAST TECHNIQUE: Axial PD, coronal PD fat sat, coronal PD, sagittal PD, and sagittal PD fat-sat images obta ined. CLINICAL INFORMATION: knee pain COMPARISON: MRI 2020 FINDINGS: Distal quadriceps and patella tendons are intact. Normal ACL and PCL. Medial and lateral collateral ligaments appear intact. Fibular head appears normal. Normal bone marro w signal in the femoral condyles and tibial plateau. Mild chondromalacia patella. Medial and lateral patellar retinaculum appear intact. Normal popliteal fossa. Stable appearing tiny horizontal fissuring involving the peripheral posterior horn medial meniscus. T his is unchanged compared to previous. Meniscal root has a more normal appearance today. Normal later al meniscus. Normal popliteal fossa. Fibula head appears normal. No other acute findings. MR/MR knee LT wo con* [id number] IMPRESSION: 1. Stable appearing tiny horizontal fissuring involving the posterior horn med ial meniscus suspicious for tiny previously described peripheral tear. ] Menisc al root has a more normal appearance today. 2. Normal lateral meniscus. 3. Mild chondromalacia patella. 4. Normal ACL and PCL. Outbridge grading: grade II: blister-like swelling/fraying of articular cartila ge extending to surface
== END 2024-04-03 13:01 | disposition home or self-care (01) ==
PROVIDERS: PCP Family Medicine; Visit Provider Specialist
DX: R93.7 Abnormal findings on diagnostic imaging of other parts of musculoskeletal system (principal); M25.562 Pain in left knee
CPT/HCPCS: 73721

== ENCOUNTER 2024-08-23 17:28 | Emergency (ER) | payer MEDICAID, SELFPAY ==
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
[2024-08-23 17:42] VITALS: BP 114/98; PULSE 78; RESP 16; TEMP 36.7; O2SAT 98; BMI 25.0
[2024-08-23 17:51] VITALS: BP 114/98; PULSE 79; RESP 16; O2SAT 98
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
[2024-08-23] MEDS: iohexol 350 mg/mL 500 mL Btl (per mL) IV (18:34)
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
[2024-08-23 18:55] VITALS: BP 150/91; PULSE 82; RESP 16; O2SAT 98
[2024-08-23 18:59] VITALS: RESP 20; O2SAT 98
[2024-08-23] MEDS: morphine 4 mg/mL SDV 1 mL IVP (18:59)
[2024-08-23] MEDS: ondansetron 2 mg/ML SDV 2 mL 4 MG IVP (18:59)
[2024-08-23 19:44] VITALS: BP 150/91; PULSE 92; RESP 18; O2SAT 96
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
== END 2024-08-23 20:40 | disposition home or self-care (01) ==
PROVIDERS: Emergency Provider Emergency Medicine; PCP Family Medicine
DX: S32.010A Wedge compression fracture of first lumbar vertebra, initial encounter for closed fracture (principal); S32.020A Wedge compression fracture of second lumbar vertebra, initial encounter for closed fracture; V89.2XXA Person injured in unspecified motor-vehicle accident, traffic, initial encounter
CPT/HCPCS: 70450; 72128; 72131; 74177; 96374; 96375; 99285; J2270; J2405

== ENCOUNTER → 2024-08-30 15:17 | Outpatient (BNVA) | payer MEDICAID, SELFPAY | PROVIDERS: Visit Provider Orthopaedic Surgery | DX: S32.010A Wedge compression fracture of first lumbar vertebra, initial encounter for closed fracture (principal); X58.XXXA Exposure to other specified factors, initial encounter | CPT/HCPCS: 72100 ==

== ENCOUNTER → 2024-09-20 12:56 | Outpatient (BNVA) | payer MEDICAID, SELFPAY | PROVIDERS: Visit Provider Orthopaedic Surgery | DX: S32.010A Wedge compression fracture of first lumbar vertebra, initial encounter for closed fracture (principal); X58.XXXA Exposure to other specified factors, initial encounter | CPT/HCPCS: 72100 ==

== ENCOUNTER → 2024-11-01 12:56 | Outpatient (BNVA) | payer MEDICAID, SELFPAY | PROVIDERS: Visit Provider Orthopaedic Surgery | DX: S32.000A Wedge compression fracture of unspecified lumbar vertebra, initial encounter for closed fracture (principal); X58.XXXA Exposure to other specified factors, initial encounter | CPT/HCPCS: 72100 ==

== ENCOUNTER 2025-02-28 02:06 | Emergency (ER) | payer MEDICAID, SELFPAY ==
[2025-02-28 02:12] VITALS: BP 156/88; PULSE 63; RESP 16; TEMP 36.6; O2SAT 100; BMI 29.0
--- OUTSIDE RECORDS SUMMARY | 2025-02-28 02:13 | XMS_ITS | Clinical Summary ---
Author Organization [facility] Address [address] [place] [address] Phone Care Team Providers Care Sole Seamer Name Role Phone Unavailable Primary Care Provider Unavailabl e Allergies No known active allergies Medications No known medications Immunizations Immunization Administration Dates Next Due (M-M-R II/PRIORIX)(12 MO UP) MEASLES, MUMPS AND RUBELLA VIRUS VACCINE, 0.5 ML IM/SUBCUT 09/16/2003 Dt Dtp Dtap Vaccine 01/24/2004, 3,03/04/2003,2002 HIB, Unspecified Formulation 09/16/2003, 05/20/2003,03/04/2003,2002 Hepatitis B Vaccine 03/04/2003,2002,2002 IPV/OPV 09/16/2003,03/04/2003,2002 Pneumococcal 7-valent conjug ate vaccine IM 09/16/2003,05/20/2003,03/04/2003,2002 Social History Tobacco Use Types Packs/Day Years Used Date Smoking Tobacco: Every Day Cigarettes 0.5 5.5 Started: 09/04/2019 Tobacco Cessation:Ready to Q uit: Not Asked; Counseling Given: Not Answered Alcohol Use Standard Drinks/Week Comments Not Currently 0 (1 standard drink = 0.6 oz pur e alcohol) Sex and Gender Information Value Date Recorded Sex Assigned at Not on file Legal Sex Male 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 Gender Identity Not on file Sexual Orientation Not on file Last Filed Vital Signs Vital Sign Reading Time Taken Comments Blood Pressure 137/79 08/24/2024 9:00 PM NET MANAGER Pulse 86 08/24/2024 9:00 PM NET MANAGER Temperature 36.8 C (98.3 F) 08/24/2024 8:05 PM NET MANAGER Respiratory Rate 16 08/24/2024 9:00 PM NET MANAGER Oxygen Saturation 100% 08/24/2024 9:00 PM NET MANAGER Inhaled Oxygen Concentration - - Weight 81.4 kg (179 lb 6.4 oz) 08/24/2024 8:05 P M NET MANAGER Height 170.2 cm (5' 7 ) 08/24/2024 8:05 PM NET MANAGER Body Mass Index 28.1 08/24/2024 8:05 PM NET MANAGER Plan of Treatment Health Maintenance Due Date Last Done Comments DTAP/TDAP/TD VACCINES (5 - Tdap) 2013 01/24/2004, 05/20/2003, 03/04/2003, Additional history exists HPV VACCINES (1 - Male 3-dos e series) 2017 INFLUENZA VACCINE (#1) 2025 HEPATITIS B VACCINES Completed 03/04/2003, 2002, 2002 Insurance [employer]ICAID [facility] [employer] MEDICAID
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
--- OUTSIDE RECORDS SUMMARY | 2025-02-28 02:13 | XMS_ITS | Clinical Summary ---
Author Organization [facility] Address [address] 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
[2025-02-28 02:15] VITALS: BP 156/88; PULSE 66; O2SAT 100
--- NOTE | 2025-02-28 02:20 | W.ED.DENTAL ---
HPI - Dental/Oral General: Chief complaint: Dental/Oral Stated complaint: Tooth Ache Time Seen by Provider: 02/28/25 02:15 History of Present Illness: 24-year-old man who presents emergency room with dental pain. He said this started earlier today. He also has a scratchy throat. He has an appoint with a dentist in a couple of days Related Data Previous Rx's ?Medication ?Instructions ?Recorded celecoxib 200 mg capsule (Celebrex) 200 mg PO DAILY #30 caps 01/07/25 tizanidine 4 mg tablet 4 mg PO Q8H PRN muscle spasticity 01/07/25 #90 tabs clindamycin HCl 300 mg capsule 600 mg (2 x 300 mg) PO Q8H 10 days 02/28/25 #60 caps dexamethasone 6 mg tablet 6 mg PO DAILY 5 days #5 tabs 02/28/25 Allergies Allergy/AdvReac Type Severity Reaction Status Date / Time Penicillins Allergy ALGY-Rash Verified 01/07/25 10:31 Review of Systems Narrative: Constitutional symptoms: Negative except as documented in HPI. Skin symptoms: Negative except as documented in HPI. Eye symptoms: Negative except as documented in HPI. ENMT symptoms: Negative except as documented in HPI. Respiratory symptoms: Negative except as documented in HPI. Cardiovascular symptoms: Negative except as documented in HPI. Gastrointestinal symptoms: Negative except as documented in HPI. Genitourinary symptoms: Negative except as documented in HPI. Musculoskeletal symptoms: Negative except as documented in HPI. Neurologic symptoms: Negative except as documented in HPI. Psychiatric symptoms: Negative except as documented in HPI. Endocrine symptoms: Negative except as documented in HPI. [facility] ED PFSH: Medical History (Updated 02/28/25 @ 02:20 by Stacy Metcalf MD) Psychiatric care Eczema Surgical History History of appendectomy History of eye surgery Social History Smoking and tobacco/nicotine status: current every day tobacco/nicotine user e-cigarettes E-Cigarette Details: e-cigarette, vaporizer device and with nicotine Alcohol intake: never Substance/Drug Use: never Adopted: No service: No Current occupational exposures/hazards: No Current gender identity: Male Physical Exam Narrative: EXAM NARRATIVE: General: Alert, no acute distress. Skin: warm and dry Head: Normocephalic Neck: Trachea midline Eye: Extraocular movements are intact. Ears, nose, mouth and throat: Oral mucosa moist Respiratory: Respirations are non-labored Musculoskeletal: Normal ROM Gastrointestinal: Abdomen does not appear distended Neurological: Alert and oriented, No focal neurological deficit observed. Psychiatric: Cooperative, appropriate mood & affect. Course Vital Signs: Vital signs: Vital Signs Temperature 97.8 F 02/28/25 02:12 Pulse Rate 66 02/28/25 02:15 Respiratory Rate 16 02/28/25 02:12 Blood Pressure 156/88 02/28/25 02:15 Pulse Oximetry 100 02/28/25 02:15 [facility] - Dental/Oral Medical Decision Making Assessment and plan: Dental abscess ?Clindamycin and Decadron in the emergency room. - Discharged home - Discussed plan with patient. Answered any questions. - Evaluation and treatment of this problem were appropriate in the emergency setting. All radiology interpretation(s) finalized by discharge Discharge Plan Discharge Patient Disposition: Home Clinical Impression: Dental abscess Condition: Stable Prescriptions: New clindamycin HCl 300 mg capsule 600 mg PO Q8H 10 Days Qty: 60 0RF dexamethasone 6 mg tablet 6 mg PO DAILY 5 Days Qty: 5 0RF No Action celecoxib [Celebrex] 200 mg capsule 200 mg PO DAILY Qty: 30 0RF tizanidine 4 mg tablet 4 mg PO Q8H PRN (Reason: muscle spasticity) Qty: 90 0RF Discharge Orders: Discharge ED (Routine); Ordered 02/28/25 Ordered By: Stacy Metcalf Referrals: Brea Chau DO [Primary Care Provider, Family Practice] Discharge Diet: Advance as tolerated Discharge Activity: Increase activity as tolerated Patient Instructions: Dental Abscess (ED), Opioid Safety, Pain Management, Patient Portal & Giovana Instructions Activity Restrictions/Additional Instructions: Thank you for choosing [facility] for your healthcare needs today. You have been screened and evaluated and felt safe for discharge. Health conditions do change or evolve sometimes and as such it is important that you follow up with your Primary Doctor to be re checked, 3-5 days is a general good time frame for follow up. You are always welcome to return to the ED for re assessment if your symptoms are worsening or you have new concerns Print Language: Italian Coding Level of Care Code ED Scrap Hooker for Coty Reilly
[2025-02-28 02:49] VITALS: BP 156/88; PULSE 63; O2SAT 100
== END 2025-02-28 02:52 | disposition home or self-care (01) ==
PROVIDERS: Emergency Provider Emergency Medicine; PCP Family Medicine
DX: K04.7 Periapical abscess without sinus (principal); F17.290 Nicotine dependence, other tobacco product, uncomplicated
CPT/HCPCS: 96372; 99284; J1100; J9999